=== PATIENT | male | born 2000 | race Two or more races ===

== ENCOUNTER 2024-12-11 19:40 | Emergency (ER) | payer MEDICAID, OTHER ==
[~2024-12-11] VITALS: Ht 180.3 cm; Wt 69.7 kg
[2024-12-11 20:40] VITALS: BP 113/76; PULSE 98; RESP 16; TEMP 98.4; O2SAT 96
[2024-12-11] MEDS ORDERED: ACET500T58 PO (21:01)
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
--- NOTE | 2024-12-11 21:28 | DVH ---
INDICATION: thoracic back pain COMPARISON: None TECHNIQUE:2 views of the thoracic spine were obtained. FINDINGS: The thoracic vertebral alignment is normal. The intervertebral disc spaces are well-maintained. No significant facet arthropathy is noted. No acute fracture, vertebral compression deformity or aggressive osseous lesions. The imaged thorax and abdomen are grossly unremarkable. IMPRESSION: No acute fracture.
--- NOTE | 2024-12-11 21:36 | DVH ---
CT HEAD WITHOUT CONTRAST Indication: head injury EXAM DATE: 12/11/2024 08:47 PM COMPARISON: None TECHNIQUE: CT of the head without intravenous contrast. RADIATION DOSE: CTDIvol: 59.62 mGy, DLP: 955.58 mGy*cm FINDINGS: There is no intracranial hemorrhage. There is no extra-axial fluid, mass, mass effect or midline shif t. The ventricles are midline and normal in size. Basilar cisterns are patent. Cohen-white differentia tion is maintained. The paranasal sinuses and mastoids are well-pneumatized. Imaged portion of the orbits are unremarkabl e. IMPRESSION: 1. No intracranial hemorrhage or mass effect.
== END 2024-12-11 21:43 | disposition home or self-care (01) ==
LOC: ER 19:44
DX: S29.012A Strain of muscle and tendon of back wall of thorax, initial encounter (principal); R42 Dizziness and giddiness; F17.210 Nicotine dependence, cigarettes, uncomplicated; V89.2XXA Person injured in unspecified motor-vehicle accident, traffic, initial encounter; Y93.89 Activity, other specified; Y92.410 Unspecified street and highway as the place of occurrence of the external cause; Y99.8 Other external cause status
CPT/HCPCS: 70450; 72070

== ENCOUNTER 2025-01-17 19:49 | Emergency (ER) | payer OTHER ==
[~2025-01-17] VITALS: Ht 180.3 cm; Wt 66.7 kg
[~2025-01-17 19:49] MED LIST: ACET500T58 PO
--- NOTE | 2025-01-17 20:36 | ED.PDOC ---
GI ASSESSMENT HPI Comments 24 year old male came to ER due to abdominal pain. Patient states he woke up this morning with cramping abdominal pain, with episodes of nausea, vomiting 1x and loose,non bloody diarrhea 3x. Possibly ate some spoiled food. Chief Complaint: Abdominal Pain Time Seen by MD: 20:34 Primary Care Provider: JALEN Reviewed Notes: Nurses Notes Allergies: Coded Allergies: NO KNOWN ALLERGIES (Unverified , 08/15/12) Home Meds Active Scripts Acetaminophen (Acetaminophen) 500 Mg Tab, 500 MG PO Q4HPRN, #30 TAB 0 Refills Prov:LEODAN ALEX 12/11/24 Information Source: Patient Mode of Arrival: Ambulatory Timing: Hours Duration: Intermittent Prehospital treatment: None Quality: Cramping Vomitus: Watery Stool: Loose, Watery Severity: Moderate Recent: Possible spoiled food Recent Hx of: None Pain Location: Epigastric Associated sign and symptoms: Nausea, Vomiting, Diarrhea, Abdominal Pain Review of Systems REVIEW OF SYSTEMS: No fever, no chills, or fatigue HEENT: No sore throat, no earache, no congestion, no neck pain. Cardiac: No chest pain. No palpitations. Lungs: No shortness of breath, no cough. GI: (+) nausea, (+) vomiting, (+) diarrhea, no constipation, (+) abdominal pain : No dysuria, frequency, or urgency. No hematuria. Musculoskeletal: No joint pain , no joint swelling, no extremity edema. Skin: No rash, no itching. Neuro: No headache, no dizziness, no weakness Vital Signs Vital Signs Date Time Temp Pulse Resp B/P (MAP) Pulse Ox O2 Delivery O2 Flow Rate FiO2 01/18/25 00:11 98 Room Air* 0 21 01/17/25 23:50 98.3 70 16 110/63 (79) 98.3 Physical Exam General: Awake, alert and oriented. No acute distress. Skin: Skin in warm, dry and intact. Appropriate color for ethnicity. HEENT: The head is normocephalic and atraumatic. Conjunctivae are clear without exudates or hemorrhage. Sclera is non-icteric. EOM are intact. No signs of nystagmus. Eyelids are normal in appearance without swelling or lesions. Oral mucosa is pink and moist Neck: The neck is supple with normal range of motion. No JVD. Cardiac: Heart rate and rhythm are normal. No murmurs, gallops, or rubs are auscultated. Respiratory: No signs of respiratory distress. Lung sounds are clear in all lobes bilaterally without rales, rhonchi, or wheezes. Abdominal: Abdomen is soft, non-tender without distention. Bowel sounds are present and normoactive in all four quadrants. Extremities: Upper and lower extremities are atraumatic in appearance without deformity or edema. Neurological: The patient is awake, alert and oriented to person, place, and time with normal speech. Speech is clear. There is no facial asymmetry. Psychiatric: Appropriate mood and affect. Good judgement and insight. Past Medical History PAST MEDICAL HISTORY: Denies Surgical History: Denies all surgeries Family History Family History: Reviewed,noncontributory to illness Social History Smoker: Non-Smoker Alcohol: Denies ETOH Use Drugs: Denies Drug Use Lives In: Home Was a procedure done? Was a procedure done?: No GI differential Dx Differential Diagnosis: Gastritis/PUD, Gastroenteritis, Inflammatory BD, Dehydration, Electrolyte Imbalance, Food Poisoning, Other X-Ray, Labs, Meds, VS Vital Signs Date Time Temp Pulse Resp B/P (MAP) Pulse Ox O2 Delivery O2 Flow Rate FiO2 01/18/25 00:11 98 Room Air* 0 21 01/17/25 23:50 98.3 70 16 110/63 (79) 96 98.3 01/17/25 22:37 98.2 80 20 107/69 (82) 98 98.2 Lab Test 01/17/25 21:48 Range/Units Urine Color Yellow Yellow Urine Clarity Clear Clear Urine pH 5.5 5.0-9.0 Urine Specific [place] 1.028 1.001-1.035 Urine Protein Negative Negative Urine Ketones Negative Negative Urine Blood Negative Negative /uL Urine Nitrite Negative Negative Urine Bilirubin Negative Negative Urine Urobilinogen Normal Negative mg/dL Urine Leukocyte Esterase Negative Negative /uL Urine RBC None seen 0 - 3 /hpf Urine Microscopic WBC 1 0-3 /HPF Urine Squamous Epithelial Cells Few <5 /hpf Urine Bacteria None seen None Seen /hpf Urine Mucus Few None Seen Urine Glucose Normal Normal mg/dL Time of 1ST Reevaluation: 20:32 Reevaluation 1ST: Improved Patient Education/Counseling: Prognosis, Need For Follow Up Family Education/Counseling: No Family Present SEPSIS Sepsis Screen Vital Signs Date Time Temp Pulse Resp B/P (MAP) Pulse Ox O2 Delivery O2 Flow Rate FiO2 01/18/25 00:11 98 Room Air* 0 21 01/17/25 23:50 98.3 70 16 110/63 (79) 96 98.3 01/17/25 22:37 98.2 80 20 107/69 (82) 98 98.2 Departure 1 Departure Time of Disposition: 20:51 Impression: Primary Impression: N&V (nausea and vomiting) Additional Impression: Diarrhea Disposition: HOME / SELF CARE / HOMELESS Condition: Stable Additional Instructions: ED DISCHARGE INSTRUCTIONS Instructions: Please read all instructions provided in this packet carefully. Although you have been discharged from the Emergency Department, this does not mean that you have a "clean bill of health". No definitive diagnosis for your symptoms has been made today. It is possible that you are in the process of developing a serious illness. This is why you must return to the ED without fail if any new or worsening symptoms (especially if your symptoms include chest pain, trouble breathing, abdominal pain, fever, headache, confusion, trouble seeing, or trouble walking) It is also very important that you see a primary care provider (PCP) within the next 3-5 days to follow up. If you are unable to get an appointment, return to the ED for re-evaluation. Diarrhea: Care Instructions Diarrhea is loose, watery stools (bowel movements). The exact cause is often hard to find. Sometimes diarrhea is your body's way of getting rid of what caused an upset stomach. Viruses, food poisoning, and many medicines can cause diarrhea. Some people get diarrhea in response to emotional stress, anxiety, or certain foods. Almost everyone has diarrhea now and then. It usually isn't serious, and your stools will return to normal soon. The important thing to do is replace the fluids you have lost, so you can prevent dehydration. The doctor has checked you carefully, but problems can develop later. If you notice any problems or new symptoms, get medical treatment right away . Follow-up care is a charles part of your treatment and safety. Be sure to make and go to all appointments, and call your doctor if you are having problems. It's also a good idea to know your test results and keep a list of the medicines you take. How can you care for yourself at home? Watch for signs of dehydration, which means your body has lost too much water. Dehydration is a serious condition and should be treated right away. Signs of dehydration are: Increasing thirst and dry eyes and mouth. Feeling faint or lightheaded. A smaller amount of urine than normal. To prevent dehydration, drink plenty of fluids. Choose water and other clear liquids until you feel better. If you have kidney, heart, or liver disease and have to limit fluids, talk with your doctor before you increase the amount of fluids you drink. When you feel like eating, start with small amounts of food. You can try eating a snack or small meal every 3 to 4 hours. Limit foods that contain sugar, lactose, fructose, high-fructose corn syrup, and sorbitol. Avoid spicy foods if they make your diarrhea worse. And avoid caffeine. The doctor may recommend that you take [id number] medicine, such as loperamide (Imodium). Read and follow all instructions on the label. Do not use this medicine if you have bloody diarrhea, a high fever, or other signs of serious illness. Call your doctor if you think you are having a problem with your medicine. When should you call for help? Call 911 anytime you think you may need emergency care. For example, call if: You passed out (lost consciousness). Your stools are maroon or very bloody. Contact your doctor now or seek immediate medical care if: You are dizzy or lightheaded, or you feel like you may faint. Your stools are black and look like tar, are pale or white, or have streaks of blood. You have new or worse belly pain. You have symptoms of dehydration, such as: Dry eyes and a dry mouth. Passing only a little urine. Cannot keep fluids down. You have a new or higher fever. Watch closely for changes in your health, and be sure to contact your doctor if: Your diarrhea is getting worse. You see pus in the diarrhea. You are not getting better after 2 days (48 hours). Credits for Diarrhea: Care Instructions Current as of: April 28, 2024 Author: [employer] Staff Clinical Review Board All [employer] education is reviewed by a team that includes physicians, nurses, advanced practitioners, registered dieticians, and other healthcare professionals. Comments MDM: 24-year-old male with diarrhea, nausea, vomiting. Minimal abdominal pain. Abdominal exam benign. Advised supportive treatment at home. Patient well-appearing, nontoxic. Advised prompt follow-up with PCP, return to the ED with any new, worsening or concerning symptoms. - I reviewed the following notes from the pt's past medical encounters: N/A The following tests were ordered, and results were reviewed by me: (See diagnostic results section) The following test were independently interpreted by me: N/A Additional information was gathered from interviewing the following independent historians: N/A I reviewed and agreed with the following test results read by other providers: N/A I discussed treatments and results with patient Decision regarding hospitalization or escalation of hospital level of care: Risks and benefits of admission for further treatment of patient's condition was considered however due to patient's stable condition patient will be discharged to follow up closely or return to care for worsening of condition or inability to follow up. Critical Care Note Critical Care Time?: No Stability Stability form required: No Heart Score Heart Score: Heart Score Response (Comments) Value History N/A 0 EKG N/A 0 Age N/A 0 Risk Factors N/A 0 Troponin N/A 0 Total 0 I personally scribed for CARLO JOY MD ([employer]) on 01/17/25 at 20:36. Electronically submitted by Francisco Owens ([employer]). I personally scribed for CARLO JOY MD ([employer]) on 01/17/25 at 20:39. Electronically submitted by Francisco Owens ([employer]). CARLO JOY MD Jan 17, 2025 20:36
[2025-01-17 23:50] VITALS: BP 110/63; PULSE 70; RESP 16; TEMP 98.3
[2025-01-18 00:11] VITALS: O2SAT 98
[2025-01-18 00:14] LABS: Urine Protein, UAD Negative (Negative)
== END 2025-01-18 00:02 | disposition home or self-care (01) ==
LOC: ER 19:49
DX: R11.2 Nausea with vomiting, unspecified (principal); R19.7 Diarrhea, unspecified
CPT/HCPCS: 81001